=== PATIENT | female | born 1985 | race Caucasian/White ===

== ENCOUNTER 2021-10-24 16:25 | Outpatient (CLI) | payer OTHER, SELFPAY ==
--- NOTE | ~2021-10-24 | XR_ITS ---
EXAMINATION: XR knee RT 3V DATE: 10/24/2021 16:56 INDICATION: Right knee pain. TECHNIQUE: 3 views of right knee were obtained. COMPARISON: None. FINDINGS: Bone alignment is normal. No fracture. There is mild tricompartmental osteoarthritis charac terized by tiny osteophytes. No joint space narrowing. There is a moderate-sized knee joint effusion. IMPRESSION: 1. Mild right knee osteoarthritis. 2. Moderate-sized right knee joint effusion. Reviewed, dictated and finalized at location A. CATION MANAGER
== END 2021-10-24 16:26 | disposition home or self-care (01) ==
LOC: CHSIMG 16:30
PROVIDERS: PCP Family Medicine; Visit Provider Family Medicine
DX: M25.561 Pain in right knee (principal)
CPT/HCPCS: 73562

== ENCOUNTER 2021-10-28 13:48 | Outpatient (RCR) | payer OTHER, SELFPAY ==
--- NOTE | 2021-10-28 14:51 | PTOPEVAL ---
Thank you for referring Jeana Rizzo to [facility].? The patient is scheduled to be seen for therapy? ____x/week for ___ weeks. Please review, sign, date and return this plan of care NIA. I agree with and certify that the following plan of care is medically necessary. Referring Physician Date Admitting Provider: Attending Provider: Pito Sales MD Referring Provider: *PT Outpatient Evaluation Start: 10/28/21 13:49 Freq: Status: Active Protocol: Document 10/28/21 13:49 ACR (Rec: 10/28/21 14:50 ACR [id number]) Therapy Assessment Status Assessment Status Assessment Status Evaluation Evaluation Information Problem Diagnosis R knee pain Onset 10/22/21 Subjective Information Patient states that she jumped Query Text:As Reported By Patient/ off of something that was 3ft Family high and has had other injuries to this knee, but with that jump her knee just gave out. Patient states that she fell on it 4 months ago when she slipped on grease, but it was only causing her problems for a day. Patient states that she has difficulty with straightening or bending the knee, weight bearing for too long, navigating stairs, and it will occasionally give out on her which causes her fear to perform activities. Patient states that she is not working at this time, but the MD told her until the then she can go back. Patient states that she is taking naproxen 2 x a day which is helping with the swelling. Patient states that she got an x-ray which showed some arthritis and effusion. Patient states that her goal for therapy is to be able to walk and perform activities normally. Prior Level of Function Activity Level (Last 3 Months) Occupation cook Hand Dominance Right Activity of Daily Living Ability Independent Indoor/Home Mobility Independent Community Mobility Independent Stairs Ability Independent Func
== END 2021-11-24 09:25 | disposition home or self-care (01) ==
LOC: CHSPT 13:48
PROVIDERS: PCP Family Medicine; Visit Provider Family Medicine
DX: M25.561 Pain in right knee (principal)
CPT/HCPCS: 97014; 97110; 97161; 97530; G0283

== ENCOUNTER 2023-03-08 22:51 | Emergency (ER) | payer OTHER, SELFPAY ==
[2023-03-08 22:52] VITALS: BP 146/84; PULSE 82; RESP 18; TEMP 37.1; O2SAT 98
--- NOTE | 2023-03-08 23:01 | ED.ANIMALBIT ---
HPI - Animal Bite General Chief Complaint: Animal Bite Stated Complaint: Dog Bite Source: patient Mode of arrival: ambulatory Limitations: no limitations History of Present Illness HPI narrative: this is a 38-year-old female who presents with some dog bite with puncture wounds to her left hand and wrist area that occurred earlier today after there was altercation with another dog and she tried to separate the animals and her dog bit her left hand and wrist causing 3 distinct puncture wounds non gaping has good range of motion in her hand with some numbness and tingling strong brisk radial pulse on the left. complaint: animal bite Onset (ago): hour(s) Animal: dog Description of animal: household pet Mechanism: bite Location: other Location - Extremities: Left: hand ( puncture wound) Related Data Home Medications Medication Instructions Recorded Confirmed escitalopram oxalate 10 mg tablet 10 mg PO DAILY 03/08/23 03/08/23 Allergies Allergy/AdvReac Type Severity Reaction Status Date / Time No Known Allergies Allergy Unknown Unverified 10/21/21 16:54 Review of Systems Review of Systems: All systems reviewed & are unremarkable except as noted in HPI and below PMFSH Past Medical History Medical History Patient denies medical problems Exam Const: General: healthy appearing Nutritional Appearance: well nourished Orientation/consciousness: patient oriented x3 Limitations: no limitations Resp: Effort & Inspection: normal respiratory effort Auscultation: clear to auscultation bilaterally Cardio: Rate: regular rate Rhythm: regular rhythm Skin: General skin exam: normal color Wounds: wounds noted Other: 3 distinct puncture wounds on her left wrist and hand non gaping Neuro: General: patient oriented x3 and moves all extremities Extrem: General: normal to inspection and no clubbing, cyanosis or edema Psych: Mental Status: mental status grossly normal Affect: normal affect Course Course Emergency Course: patient up-to-date with her tetanus, this is a household PET up-to-date with some vaccinations and will update patient with some antibiotic ceftriaxone 1g IM. Steri-Strips was placed on local wound. Vital Signs Vital signs: Vital Signs Temperature 37.1 C 03/08/23 22:52 Pulse Rate 82 03/08/23 22:52 Respiratory Rate 18 03/08/23 22:52 Blood Pressure 146/84 H 03/08/23 22:52 Pulse Oximetry 98 03/08/23 22:52 Oxygen Delivery Room Air 03/08/23 22:52 Temperature 37.1 C 03/08/23 22:52 Pulse Rate 82 03/08/23 22:52 Respiratory Rate 18 03/08/23 22:52 Blood Pressure 146/84 H 03/08/23 22:52 Pulse Oximetry 98 03/08/23 22:52 Oxygen Delivery Room Air 03/08/23 22:52 Critical Care Time Critical Care Time Critical Care Time: No Discharge Plan Discharge Clinical Impression: Bite by animal Dog bite Qualifiers: Encounter type: initial encounter Qualified Code(s): W54.0XXA - Bitten by dog, initial encounter Patient Disposition: Home, Self-Care Condition: Stable Instructions: Antibiotic Form, Animal Bite (ED) Additional Instructions: Advised to follow-up primary care physician if symptoms persist or worsen, and take medicine as prescribed. Prescriptions: New amoxicillin-pot clavulanate [Augmentin] 500-125 mg tablet 1 tablet PO TID 10 Days Qty: 30 0RF No Action escitalopram oxalate 10 mg tablet 10 mg PO DAILY Follow-up/Referrals: Pito Sales MD [Primary Care Provider] - Time of Disposition: 23:06
[2023-03-08] MEDS: cefTRIAXone 1 GM, LIDOCAINE HCL 1% LOCAL INJ 2.1 ML IM (23:16)
[2023-03-08 23:20] VITALS: BP 123/79; PULSE 89; RESP 19; TEMP 36.6; O2SAT 99
--- NOTE | 2023-03-08 23:28 | PC.NURSE ---
left top hand 1 cm lac, left top wirst 1.5cm lac, left forearm 1cm lac from dog bite, steri-strips applied after cleansed with anti-bacterial cleanser
== END 2023-03-08 23:29 | disposition home or self-care (01) ==
PROVIDERS: Emergency Provider Emergency Medicine; PCP Family Medicine
DX: S61.452A Open bite of left hand, initial encounter (principal); S61.552A Open bite of left wrist, initial encounter; W54.0XXA Bitten by dog, initial encounter
CPT/HCPCS: 96372; 99283; J0696

== ENCOUNTER 2023-03-28 12:04 | Outpatient (CLI) | payer OTHER, SELFPAY ==
--- NOTE | ~2023-03-28 | XR_ITS ---
EXAMINATION: XR wrist LT 2V DATE: 03/28/2023 12:23 INDICATION: Left wrist pain TECHNIQUE: Posteroanterior and lateral views of the left wrist were obtained. COMPARISON: none FINDINGS: Nondisplaced mildly comminuted extra articular fracture at the neck of the distal left ulna. No other fractures identified. Alignment remains essentially anatomic. Joint spaces are normal. Soft tissue s welling about the wrist and distal forearm. IMPRESSION: 1. Nondisplaced mildly comminuted extra articular fracture at the neck of the distal left ulna. Reviewed, dictated and finalized at location A. IMPRESSION: 1. Nondisplaced mildly comminuted extra articular fracture at the neck of the d istal left ulna.
[2023-03-28 12:18] LABS: Basophils Absolute Auto 0.07 K/mm3 (0.00-0.10); Basophils Percent Auto 0.7 % (0.0-1.0); Immature Granulocyte Absolute 0.05 K/mm3 (0.00-0.00); Immature Granulocyte Percent A 0.5 % (0.0-0.0); Lymphocytes Absolute Auto 2.96 K/mm3 (1.10-4.50); Lymphocytes Percent Auto 29.7 % (18.0-42.0); Mean Corpuscular HGB Conc 32.6 g/dL (32.0-36.0); Mean Corpuscular Hemoglobin 28.1 pg (27.0-31.0); Mean Corpuscular Volume 86.2 fL (78.0-102.0); Monocytes Absolute Auto 0.59 K/mm3 (0.10-0.90); Monocytes Percent Auto 5.9 % (2.0-11.0); Neutrophils Percent Auto 60.2 % (50.0-70.0); Platelet Count Result 297 K/mm3 (150-420); Red Blood Count 4.99 M/mm3 (4.20-5.40); Red Cell Distribution Width 13.8 % (11.6-14.4)
[2023-03-28 12:55] LABS: Alanine Aminotransferase 18 U/L (14-59); Albumin Level 3.8 g/dL (3.4-5.0); Alkaline Phosphatase 105 U/L (46-116); Anion Gap 7 mmol/L (8-16); Aspartate Amino Transferase < 10 U/L (15-37); Bilirubin,Total 0.4 mg/dL (0.00-1.00); Blood Urea Nitrogen 12 mg/dL (7-18); Calcium 9.4 mg/dL (8.5-10.1); Carbon Dioxide 26 mmol/L (21-32); Chloride 107 mmol/L (98-108); Estimated Glomerular Filt Rate > 60; Glucose 87 mg/dL (70-99); Osmolality Calculated 288 mOsm/kg (285-295); Potassium 4.4 mmol/L (3.5-5.1); Sodium 140 mmol/L (136-145); Total Protein 6.7 g/dL (6.4-8.2)
[2023-03-28 13:50] LABS: Erythrocyte Sedimentation Rate 5 mm/hr (0-15)
== END 2023-03-28 12:05 | disposition home or self-care (01) ==
LOC: CHSLAB 12:07
PROVIDERS: PCP Family Medicine; Visit Provider Family Medicine
DX: S52.692A Other fracture of lower end of left ulna, initial encounter for closed fracture (principal); M25.532 Pain in left wrist
CPT/HCPCS: 36415; 73100; 80053; 85025; 85652

== ENCOUNTER 2023-04-27 10:24 | Outpatient (NON) | payer OTHER, SELFPAY ==
[2023-04-27 10:45] LABS: Basophils Absolute Auto 0.04 K/mm3 (0.00-0.10); Basophils Percent Auto 0.7 % (0.0-1.0); Eosinophils Absolute Auto 0.74 K/mm3 (0.02-0.50); Hematocrit 42.8 % (35.0-49.0); Hemoglobin 14.2 g/dL (12.0-15.0); Immature Granulocyte Absolute 0.07 K/mm3 (0.00-0.00); Immature Granulocyte Percent A 1.2 % (0.0-0.0); Lymphocytes Absolute Auto 1.14 K/mm3 (1.10-4.50); Mean Corpuscular HGB Conc 33.2 g/dL (32.0-36.0); Mean Corpuscular Hemoglobin 28.6 pg (27.0-31.0); Mean Corpuscular Volume 86.1 fL (78.0-102.0); Mean Platelet Volume 11.7 fl (9.2-11.8); Monocytes Absolute Auto 0.62 K/mm3 (0.10-0.90); Monocytes Percent Auto 10.9 % (2.0-11.0); Neutrophils Absolute Auto 3.1 K/mm3 (1.7-7.2); Neutrophils Percent Auto 54.2 % (50.0-70.0); Platelet Count Result 249 K/mm3 (150-420); Red Blood Count 4.97 M/mm3 (4.20-5.40); Red Cell Distribution Width 14.3 % (11.6-14.4); White Blood Count 5.7 K/mm3 (4.8-10.8)
[2023-04-27 10:53] LABS: Anion Gap 10 mmol/L (8-16); Blood Urea Nitrogen 12 mg/dL (7-18); Calcium 8.9 mg/dL (8.5-10.1); Carbon Dioxide 23 mmol/L (21-32); Chloride 105 mmol/L (98-108); Estimated Glomerular Filt Rate > 60; Glucose 109 mg/dL (70-99); Osmolality Calculated 286 mOsm/kg (285-295); Potassium 3.6 mmol/L (3.5-5.1); Sodium 138 mmol/L (136-145); Vancomycin Trough 15.2 ug/mL (10.0-15.0)
== END 2023-04-27 10:25 | disposition home or self-care (01) ==
LOC: CHSLAB 10:27
PROVIDERS: Visit Provider Nurse Practitioner Family
DX: M86.132 Other acute osteomyelitis, left radius and ulna (principal)
CPT/HCPCS: 36415; 80048; 80202; 85025

== ENCOUNTER 2023-04-27 12:29 | Emergency (ER) | payer OTHER, SELFPAY ==
[2023-04-27 12:38] VITALS: BP 102/60; PULSE 77; RESP 18; TEMP 36.7; O2SAT 98
--- NOTE | 2023-04-27 12:50 | ED.URI ---
HPI - URI/Sore Throat General Stated Complaint: strep test Time Seen by Provider: 04/27/23 12:52 Source: patient and RN notes reviewed Mode of arrival: ambulatory Limitations: no limitations History of Present Illness HPI Narrative: 38-year-old female presents concern for swollen lymph nodes. She reports she is currently seen by home health care and has a PICC line for ongoing treatment and vancomycin for osteomyelitis. Reports she began having swollen lymph nodes on the left side, her orthopedic doctor wanted her to be tested for strep. She denies fever, aches, chills, sweats, runny nose, stuffy nose, sore throat, headache. She reports fatigue. MD elicited complaint: other (swollen lymph nodes) Related Data Home Medications Medication Instructions Recorded Confirmed escitalopram oxalate 10 mg tablet 10 mg PO DAILY 03/08/23 04/27/23 vancomycin 1.75 gram/250 mL in 0.9 1 g IV Q12H 04/27/23 04/27/23 % sodium chloride intravenous soln Allergies Allergy/AdvReac Type Severity Reaction Status Date / Time No Known Allergies Allergy Unknown Unverified 04/27/23 12:48 Review of Systems Review of Systems: CONSTITUTIONAL: Denies malaise, chills, sweats, or fever. Reports fatigue EYES: Denies visual changes, redness, or discharge. ENT: Denies rhinorrhea, congestion, sinus pain, otalgia and sore throat. Reports swollen lymph nodes CARDIOVASCULAR: Denies chest pain, palpitations, or edema. RESPIRATORY: Denies cough. Denies dyspnea. GASTROINTESTINAL: Denies abdominal pain, nausea, vomiting, diarrhea SKIN: Denies rash or itching. MUSCULOSKELETAL: Denies myalgia. NEUROLOGIC: Denies headache. All systems reviewed & are unremarkable except as noted in HPI and below PMFSH Past Medical History Medical History Patient denies medical problems Comments At time of signature, agree with nursing past medical, surgical, social and family history. There is no relevant family history pertinent to the presenting complaint Exam Narrative: GENERAL: Well-appearing, well-nourished, and in no acute distress. HEAD: Normocephalic EYES: PERRLA, conjunctivae clear ENT: Nares clear. Mucous membranes moist. TM pearly chaves with dull light reflex bilaterally; no tragal tenderness. Oropharynx not erythematous without lesions. Tonsils not enlarged and without exudate, no drooling, no hoarseness, no trismus, uvula midline. NECK: Supple. Left lymphadenopathy CHEST: Clear to auscultation, breath sounds equal. No wheezing, rhonchi, rales, or stridor. No respiratory distress, speaks in full sentences. HEART: Regular rate and rhythm. No murmur heard. SKIN: Warm, dry, no rash. NEURO: Alert and oriented x3. PSYCH: Normal mood and affect Course Course Emergency Course: Patient is aware of diagnosis, understands and agrees to treatment plan. Anticipatory guidance given. Patient agrees to follow-up as directed and is aware of reasons to seek care at the emergency department. Portions of this record may have been created with voice recognition software Level of Care: Express Care Visit Vital Signs Vital signs: Vital Signs Temperature 98.1 F 04/27/23 12:38 Pulse Rate 77 04/27/23 12:38 Respiratory Rate 18 04/27/23 12:38 Blood Pressure 102/60 04/27/23 12:38 Pulse Oximetry 98 04/27/23 12:38 Oxygen Delivery Room Air 04/27/23 12:38 Temperature 98.1 F 04/27/23 12:38 Pulse Rate 77 04/27/23 12:38 Respiratory Rate 18 04/27/23 12:38 Blood Pressure 102/60 04/27/23 12:38 Pulse Oximetry 98 04/27/23 12:38 Oxygen Delivery Room Air 04/27/23 12:38 Reviewed. MDM - URI/Sore Throat MDM Narrative Medical decision making narrative: Differential diagnosis considered: Bautista virus, strep pharyngitis, allergic rhinitis, upper respiratory tract infection, sinusitis, rhinosinusitis, nasopharyngitis. viral pharyngitis, otitis media, otitis externa, pneumonia, bronc
== END 2023-04-27 13:05 | disposition home or self-care (01) ==
PROVIDERS: Emergency Provider Nurse Practitioner; PCP Family Medicine
DX: R59.9 Enlarged lymph nodes, unspecified (principal)
CPT/HCPCS: 87081; 87880; 99213; G0463

== ENCOUNTER 2023-05-01 10:05 | Outpatient (NON) | payer OTHER, SELFPAY ==
[2023-05-01 10:21] LABS: Hematocrit 42.3 % (35.0-49.0); Hemoglobin 14.1 g/dL (12.0-15.0); Mean Corpuscular HGB Conc 33.3 g/dL (32.0-36.0); Mean Corpuscular Hemoglobin 28.3 pg (27.0-31.0); Mean Corpuscular Volume 84.8 fL (78.0-102.0); Mean Platelet Volume 11.8 fl (9.2-11.8); Platelet Count Result 215 K/mm3 (150-420); Red Blood Count 4.99 M/mm3 (4.20-5.40); White Blood Count 6.6 K/mm3 (4.8-10.8)
[2023-05-01 10:42] LABS: Band Neutrophils Percent 3 % (0-6); Basophils Percent Manual 0 % (0-1); Eosinophils Absolute Manual 1.12 K/mm3 (0.02-0.5); Eosinophils Percent Manual 17 % (1-6); Lymphocytes Absolute Manual 0.59 K/mm3 (1.1-4.5); Lymphocytes Percent Manual 9 % (18-44); Monocytes Absolute Manual 0.79 K/mm3 (0.1-0.90); Monocytes Percent Manual 12 % (3-9); Neutrophils Absolute Manual 4.09 K/mm3 (1.7-7.2); Neutrophils Percent Manual 59 % (46-73); Platelet Estimate Adequate (Adequate); Total Cells Counted 100
[2023-05-01 10:45] LABS: Anion Gap 10 mmol/L (8-16); Blood Urea Nitrogen 11 mg/dL (7-18); Calcium 9.2 mg/dL (8.5-10.1); Carbon Dioxide 23 mmol/L (21-32); Chloride 106 mmol/L (98-108); Estimated Glomerular Filt Rate > 60; Glucose 121 mg/dL (70-99); Osmolality Calculated 288 mOsm/kg (285-295); Potassium 3.6 mmol/L (3.5-5.1); Sodium 139 mmol/L (136-145); Vancomycin Trough 18.3 ug/mL (10.0-15.0)
== END 2023-05-01 10:06 | disposition home or self-care (01) ==
LOC: CHSLAB 10:08
PROVIDERS: Visit Provider Nurse Practitioner Family
DX: M86.8X3 Other osteomyelitis, forearm (principal)
CPT/HCPCS: 36415; 80048; 80202; 85025

== ENCOUNTER 2023-05-07 10:52 | Outpatient (NON) | payer OTHER, SELFPAY ==
[2023-05-07 11:16] LABS: Basophils Absolute Auto 0.09 K/mm3 (0.00-0.10); Basophils Percent Auto 1.2 % (0.0-1.0); Eosinophils Absolute Auto 1.17 K/mm3 (0.02-0.50); Eosinophils Percent Auto 15.3 % (1.0-6.0); Hematocrit 43.5 % (35.0-49.0); Hemoglobin 14.3 g/dL (12.0-15.0); Immature Granulocyte Absolute 0.04 K/mm3 (0.00-0.00); Immature Granulocyte Percent A 0.5 % (0.0-0.0); Lymphocytes Absolute Auto 1.07 K/mm3 (1.10-4.50); Mean Corpuscular HGB Conc 32.9 g/dL (32.0-36.0); Mean Corpuscular Hemoglobin 28.1 pg (27.0-31.0); Mean Corpuscular Volume 85.6 fL (78.0-102.0); Mean Platelet Volume 11.1 fl (9.2-11.8); Monocytes Absolute Auto 0.57 K/mm3 (0.10-0.90); Monocytes Percent Auto 7.4 % (2.0-11.0); Neutrophils Absolute Auto 4.7 K/mm3 (1.7-7.2); Neutrophils Percent Auto 61.6 % (50.0-70.0); Platelet Count Result 287 K/mm3 (150-420); Red Blood Count 5.08 M/mm3 (4.20-5.40); Red Cell Distribution Width 13.4 % (11.6-14.4); White Blood Count 7.7 K/mm3 (4.8-10.8)
[2023-05-07 11:29] LABS: Anion Gap 9 mmol/L (8-16); Blood Urea Nitrogen 11 mg/dL (7-18); Calcium 9.3 mg/dL (8.5-10.1); Carbon Dioxide 26 mmol/L (21-32); Chloride 106 mmol/L (98-108); Estimated Glomerular Filt Rate > 60; Glucose 101 mg/dL (70-99); Osmolality Calculated 291 mOsm/kg (285-295); Potassium 4.1 mmol/L (3.5-5.1); Sodium 141 mmol/L (136-145); Vancomycin Trough 18.3 ug/mL (10.0-15.0)
== END 2023-05-07 10:53 | disposition home or self-care (01) ==
LOC: CHSLAB 10:55
PROVIDERS: PCP Family Medicine; Visit Provider Nurse Practitioner Family
DX: M86.19 Other acute osteomyelitis, multiple sites (principal)
CPT/HCPCS: 80048; 80202; 85025

== ENCOUNTER 2023-05-14 10:12 | Outpatient (NON) | payer OTHER, SELFPAY ==
[2023-05-14 10:37] LABS: Hemoglobin 13.3 g/dL (12.0-15.0); Mean Corpuscular HGB Conc 32.4 g/dL (32.0-36.0); Mean Corpuscular Hemoglobin 27.9 pg (27.0-31.0); Mean Corpuscular Volume 86.1 fL (78.0-102.0); Mean Platelet Volume 11.4 fl (9.2-11.8); Platelet Count Result 318 K/mm3 (150-420); Red Blood Count 4.76 M/mm3 (4.20-5.40); Red Cell Distribution Width 13.4 % (11.6-14.4); White Blood Count 8.3 K/mm3 (4.8-10.8)
[2023-05-14 10:46] LABS: Anion Gap 10 mmol/L (8-16); Blood Urea Nitrogen 9 mg/dL (7-18); Calcium 8.8 mg/dL (8.5-10.1); Carbon Dioxide 26 mmol/L (21-32); Chloride 105 mmol/L (98-108); Estimated Glomerular Filt Rate > 60; Glucose 123 mg/dL (70-99); Osmolality Calculated 291 mOsm/kg (285-295); Potassium 3.6 mmol/L (3.5-5.1); Sodium 141 mmol/L (136-145); Vancomycin Trough 6.9 ug/mL (10.0-15.0)
[2023-05-14 11:08] LABS: Band Neutrophils Percent 0 % (0-6); Basophils Absolute Manual 0.08 K/mm3 (0-0.1); Basophils Percent Manual 1 % (0-1); Eosinophils Absolute Manual 1.24 K/mm3 (0.02-0.5); Eosinophils Percent Manual 15 % (1-6); Lymphocytes Absolute Manual 2.24 K/mm3 (1.1-4.5); Lymphocytes Percent Manual 27 % (18-44); Metamyelocytes Percent 1 %; Monocytes Absolute Manual 0.24 K/mm3 (0.1-0.90); Monocytes Percent Manual 3 % (3-9); Myelocytes Percent 0 %; Neutrophils Absolute Manual 4.39 K/mm3 (1.7-7.2); Neutrophils Percent Manual 53 % (46-73); Platelet Estimate Adequate (Adequate); Total Cells Counted 100
== END 2023-05-14 10:13 | disposition home or self-care (01) ==
LOC: CHSLAB 10:14
PROVIDERS: Visit Provider Nurse Practitioner Family
DX: M86.132 Other acute osteomyelitis, left radius and ulna (principal)
CPT/HCPCS: 36415; 80048; 80202; 85025

== ENCOUNTER 2025-01-21 08:15 | Outpatient (CLI) | payer OTHER, SELFPAY ==
--- NOTE | 2025-01-21 11:00 | NEURO_ITS ---
Impression: # Complains of tingling and numbness of right hand. ? # Normal Nerve Conduction Study. ? # No Carpal Tunnel Syndrome or ulnar neuropathy. ? # Normal needle/EMG exam. ? # Clinical correlation recommended. ?Nerve Conduction Studies Anti Sensory Summary Table ?Stim Site NR Peak (ms) P-T Amp (?V) Site1 Site2 Delta-P (ms) Dist (cm) Pilo (m/s) Left Median Anti Sensory (2-3nd Digit) Wrist ? 3.6 64.6 Wrist 2-3nd Digit 3.6 14.0 39 Wrist ? 3.5 69.0 Wrist 2-3nd Digit 3.6 14.0 39 Right Median Anti Sensory (2-3nd Digit) Wrist ? 3.8 42.3 Wrist 2-3nd Digit 3.8 14.0 37 Wrist ? 3.8 23.9 Wrist 2-3nd Digit 3.8 14.0 37 Left Radial Anti Sensory (Base 1st Digit) Wrist ? 2.4 26.2 Wrist Base 1st Digit 2.4 0.0 Right Radial Anti Sensory (Base 1st Digit) Wrist ? 2.0 28.2 Wrist Base 1st Digit 2.0 0.0 Left Ulnar Anti Sensory (5th Digit) Wrist ? 2.3 66.2 Wrist 5th Digit 2.3 14.0 61 Right Ulnar Anti Sensory (5th Digit) Wrist ? 2.3 55.7 Wrist 5th Digit 2.3 14.0 61 Motor Summary Table ?Stim Site NR Onset (ms) O-P Amp (mV) Site1 Site2 Delta-0 (ms) Dist (cm) Pilo (m/s) Left Median Motor (Abd Poll Brev) Wrist ? 3.5 2.4 Elbow Wrist 4.8 28.0 58 Elbow ? 8.3 4.7 Right Median Motor (Abd Poll Brev) Wrist ? 3.4 7.5 Elbow Wrist 5.0 28.0 56 Elbow ? 8.4 10.9 Left Ulnar Motor (Abd Dig Minimi) Wrist ? 2.3 6.4 A Elbow Wrist 5.0 29.0 58 A Elbow ? 7.3 5.1 B Elbow Wrist 3.5 20.0 57 B Elbow ? 5.8 5.3 Right Ulnar Motor (Abd Dig Minimi) Wrist ? 2.2 5.4 A Elbow Wrist 4.9 28.0 57 A Elbow ? 7.1 4.5 B Elbow Wrist 3.3 19.0 58 B Elbow ? 5.5 3.2 F Wave Studies ?NR F-Lat (ms) L-R F-Lat (ms) Left Median (Mrkrs) (Abd Poll Brev) ? 29.30 0.04 Right Median (Mrkrs) (Abd Poll Brev) ? 29.26 0.04 Left Ulnar (Mrkrs) (Abd Dig Min) ? 28.49 0.09 Right Ulnar (Mrkrs) (Abd Dig Min) ? 28.59 0.09 EMG ?Side Muscle Nerve Root Ins Act Fibs Amp Dur Recrt Comment Right 1stDorInt Ulnar C8-T1 Nml Nml Nml Nml Nml Right Ext Indicis Radial (Post Int) C7-8 Nml Nml Nml Nml Nml Right Ext Digitorum Radial (Post Int) C7-8 Nml Nml Nml Nml Nml Right BrachioRad Radial C5-6 Nml Nml Nml Nml Nml Right PronatorTeres Median C6-7 Nml Nml Nml Nml Nml Right Abd Poll Brev Median C8-T1 Nml Nml Nml Nml Nml Right ABD Dig Min Ulnar C8-T1 Nml Nml Nml Nml Nml Right FlexPolLong Median (Ant Int) C7-8 Nml Nml Nml Nml Nml Right Abd Poll Long Radial (Post Int) C7-8 Nml Nml Nml Nml Nml Left 1stDorInt Ulnar C8-T1 Nml Nml Nml Nml Nml Left Ext Indicis Radial (Post Int) C7-8 Nml Nml Nml Nml Nml Left Ext Digitorum Radial (Post Int) C7-8 Nml Nml Nml Nml Nml Left BrachioRad Radial C5-6 Nml Nml Nml Nml Nml Left PronatorTeres Median C6-7 Nml Nml Nml Nml Nml Left Abd Poll Brev Median C8-T1 Nml Nml Nml Nml Nml Left ABD Dig Min Ulnar C8-T1 Nml Nml Nml Nml Nml Left FlexPolLong Median (Ant Int) C7-8 Nml Nml Nml Nml Nml Left Abd Poll Long Radial (Post Int) C7-8 Nml Nml Nml Nml Nml
== END 2025-01-21 08:16 | disposition home or self-care (01) ==
PROVIDERS: PCP Family Medicine; Visit Provider Family Medicine
DX: R20.0 Anesthesia of skin (principal); R20.2 Paresthesia of skin
CPT/HCPCS: 95886; 95911